=== PATIENT | female | born 1970 | race Caucasian/White ===

== ENCOUNTER → 2022-01-20 16:18 | Outpatient (CLI) | payer OTHER, SELFPAY ==
--- NOTE | ~2022-01-20 | MM_ITS ---
EXAMINATION: MM screening manjit BI w malathi HISTORY: Screening mammogram TECHNIQUE: Craniocaudal and mediolateral oblique 3-D tomosynthesis images were obtained and synthetic 2-D images were generated. CAD analysis was submitted and interpreted. COMPARISON: 11/17/2016 bilateral screening mammogram 12/19/2014 diagnostic left mammogram and complete left breast ultrasound 12/10/2014 bilateral screening mammogram. BREAST PARENCHYMAL COMPOSITION: There are scattered areas of fibroglandular density. FINDINGS: There are scattered punctate benign microcalcifications and occasional calcified microhemat omas. No malignant calcifications are evident. There is no evidence of suspicious mass, calcification , or architectural distortion to suggest malignancy in either breast. There has been no suspicious in terval change. IMPRESSION: 1. No mammographic evidence of malignancy. 2. Recommend routine screening mammography in one year. BI-RADS Category 2: Benign finding(s). Reviewed, dictated and finalized at location A.
== END ==
PROVIDERS: PCP Family Medicine
DX: Z12.31 Encounter for screening mammogram for malignant neoplasm of breast (principal)
CPT/HCPCS: 77063; 77067

== ENCOUNTER 2023-06-19 11:43 | Emergency (ER) | payer OTHER, SELFPAY ==
[2023-06-19 11:56] VITALS: BP 133/99; PULSE 165; RESP 18; TEMP 36.6; O2SAT 100
[2023-06-19] MEDS: SODIUM CHLORIDE 0.9% IV 1,000 ML 999 ML IV CONT (12:01)
--- NOTE | 2023-06-19 12:05 | ED.FEMALEGU ---
HPI - Female Genitourinary General Chief complaint: Vaginal Bleeding Stated complaint: vag bleed, post hysterectomy Time Seen by Provider: 06/19/23 12:01 Source: patient, family and other (patient's obGyn/surgeon Dr Clarita Flynn) Limitations: no limitations History of Present Illness HPI Narrative: This is a 52year old female who underwent hysterctomy as well as prolapse surgery at [facility] on 06/15/23. The hysterectomy was performed by an ObGyn and the prolapse repair performed by Dr Clarita Flynn, both during the same OR time. She went home the same day with vaginal packing in place as well as an indwelling Wilkes catheter. Routine post operative healing with no complications, no fevers. She had been instructed to remove the Wilkes and the packing today (Monday). 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 She has not taken today's dose; last dose was yesterday afternoon. She removed the catheter and packing today as instructed but immediately started bleeding. She immediately bleed through a thick maxi pad in 10 minutes. Bleeding continued and she was soaking through a towel. A second maxi pad was placed and they attempted to drive to [facility]. En route, they contacted Dr Clarita Flynn. Given the degree of bleeding described and patient's report of feeling dizzylightheaded, instructed to present to nearest ED. Related Data Home Medications Medication Instructions Recorded Confirmed albuterol sulfate 90 mcg/actuation 1 puff inhalation QID PRN 06/19/19 06/20/19 aerosol inhaler (ProAir HFA) Shortness Of Breath fluoxetine 40 mg capsule (Prozac) 40 mg PO DAILY 06/19/19 06/20/19 metoprolol succinate 50 mg 50 mg PO DAILY 06/19/19 06/20/19 tablet,extended release 24 hr omeprazole 40 mg capsule,delayed 40 mg PO DAILY 06/19/19 06/20/19 release rivaroxaban 10 mg tablet (Xarelto) 10 mg PO DAILY 06/19/19 06/20/19 Allergies Allergy/AdvReac Type Severity Reaction Status Date / Time codeine Allergy Unknown NAUSEA/VOMI Verified 06/19/23 12:00 TING Penicillins Allergy Unknown HIVES Verified 06/19/23 12:00 [facility] Past Medical History Medical History Anxiety Depression Factor II deficiency GERD (gastroesophageal reflux disease) HTN (hypertension) Hx of thromboembolism of vein Obesity Pulmonary embolism Vaginal vault prolapse after hysterectomy Surgical repair Dr Clarita Flynn [facility] 06/15/2023 Vitamin D deficiency Surgical History Surgical History History of hysterectomy [facility] 06/15/2023 Hx of colonoscopy Hx of removal of ovary Family History Family History (Updated 06/20/19 @ 09:21 by Yvonne Pierre, NARCISO) Grandparent Carcinoma of colon Father Lung cancer Diabetes mellitus Hypertension Social History Social History Smoking packs per day: 1 Smoking cigarettes per day: 20.0 Years smoked: 10 Smoking pack-years: 10.00 Smoking status: Former smoker Tobacco type: cigarettes Alcohol intake: never Substance use: never Living arrangements: with family Gender identity (if verbalized by the patient): Female Exam Narrative: GENERAL: Well-appearing, well-nourished, and in no acute distress. HEAD: Normocephalic, atraumatic. EYES: EOMI. [place] conjunctiva ENT: Nares clear, no rhinorrhea or epistaxis. . NECK: Supple. CHEST: No respiratory distress. Speaking in full sentences HEART: Tachycardic rate and rhythm. . ABDOMEN: Soft, nontender, nondistended : Pad saturated with blood with blood on clothes, underpad, and around vulva. Large blood clot approximately the size of grapefruit removed from vaginal vault. External genitalia with sutures in place without evidence of lori bleeding. Speculum exam at the introitus reveals a lot of pooled blood in the fornices and posterior to cervix. Multiple thick cotton sw
[2023-06-19 12:10] LABS: Basophils Absolute Auto 0.1 K/mm3 (0.0-0.1); Basophils Percent Auto 0.7 % (0.2-1.2); Eosinophils Absolute Auto 0.3 K/mm3 (0-0.3); Eosinophils Percent Auto 2.4 % (0-4.4); Hematocrit 42.4 % (37.0-47.0); Hemoglobin 14.2 g/dL (12.0-15.0); Immature Granulocyte Absolute 0.03 K/mm3 (0.00-0.031); Immature Granulocyte Percent A 0.3 % (0-0.5); Lymphocytes Absolute Auto 3.08 K/mm3 (0.9-3.2); Lymphocytes Percent Auto 26.4 % (18.3-44.2); Mean Corpuscular HGB Conc 33.5 g/dl (32-36); Mean Corpuscular Hemoglobin 31.6 pg (26-34); Mean Corpuscular Volume 94.2 fl (80-100); Mean Platelet Volume 9.5 fl (7.4-10.4); Monocytes Absolute Auto 0.8 K/mm3 (0.1-0.6); Monocytes Percent Auto 6.9 % (2.6-8.5); Neutrophils Absolute Auto 7.4 K/mm3 (1.3-6.7); Neutrophils Percent Auto 63.3 % (45.5-73.1); Platelet Count Result 270 k/mm3 (150-375); Red Cell Distribution Width 12.2 % (11.5-14.5); White Blood Count 11.7 K/mm3 (4.5-10.0)
[2023-06-19 12:25] LABS: INR 1.1; Prothrombin Time 14.3 Seconds (11.1-14.7)
[2023-06-19 12:26] LABS: Partial Thromboplastin Time 28.6 SECONDS (22.3-36.8)
[2023-06-19 12:26] LABS: Alanine Aminotransferase 23 U/L (6-35); Albumin Level 4.5 g/dL (3.5-5.1); Alkaline Phosphatase 65 U/L (38-126); Anion Gap 13 mmol/L (8-16); Aspartate Amino Transferase 29 U/L (14-36); Bilirubin,Total 0.6 mg/dL (0.2-1.3); Blood Urea Nitrogen 16 mg/dL (7-17); Calcium 9.4 mg/dL (8.4-10.2); Carbon Dioxide 25 mmol/L (22-30); Chloride 102 mmol/L (98-107); Estimated CRCL calculation 90 ml/min; Estimated Glomerular Filt Rate > 60; Glucose 98 mg/dL (65-110); Potassium 3.3 mmol/L (3.4-5.0); Sodium 140 mmol/L (137-145)
[2023-06-19 13:52] VITALS: BP 107/77; BP 110/73; PULSE 90; RESP 19; RESP 20; O2SAT 100; O2SAT 99
[2023-06-19] MEDS: ONDANSETRON INJ 4 MG/2 ML VIAL IV PUSH (13:54)
[2023-06-19 15:01] LABS: Hematocrit 38.6 % (37.0-47.0); Hemoglobin 12.8 g/dL (12.0-15.0)
[2023-06-19 16:38] VITALS: BP 113/75; PULSE 80; RESP 18; O2SAT 100
== END 2023-06-19 16:41 | disposition short-term general hospital (02) ==
PROVIDERS: Emergency Medicine; Emergency Provider Student in an Organized Health Care Education/Training Program; PCP Family Medicine
DX: N99.820 Postprocedural hemorrhage of a genitourinary system organ or structure following a genitourinary system procedure (principal); F41.9 Anxiety disorder, unspecified; F32.A Depression, unspecified; K21.9 Gastro-esophageal reflux disease without esophagitis; I10 Essential (primary) hypertension
CPT/HCPCS: 36415; 80053; 85014; 85018; 85025; 85610; 85730; 86850; 86900; 86901; 96361; 96374; 99285; J2405; J7030